=== PATIENT | female | born 1990 | race American Indian/Alaskan Native ===

== ENCOUNTER 2016-11-13 15:11 | Emergency (ER) | payer BC ==
[2016-11-13 16:23] LABS: Basophils % (Auto) 0.4 % (0.0-1.8); Eosinophils % (Auto) 0.1 % (0.0-4.3); Hematocrit 40.9 % (30.3-42.9); Hemoglobin 13.2 gm/dl (10.1-14.3); Mean Corpuscular HGB Conc 32 % (30-34); Mean Corpuscular Hemoglobin 29 pg (28-32); Mean Corpuscular Volume 91 fl (79-97); Platelet Count 319 K/mm3 (140-440); Red Blood Count 4.49 M/mm3 (3.65-5.03); Red Cell Distribution Width 13.7 % (13.2-15.2); White Blood Count 7.3 K/mm3 (4.5-11.0)
[2016-11-13 16:30] LABS: Alanine Aminotransferase 15 units/L (7-56); Albumin 4.7 g/dL (3.9-5); Albumin/Globulin Ratio 1.5 %; Alkaline Phosphatase 59 units/L (35-129); Anion Gap 23 mmol/L; BUN/Creatinine Ratio 3.75; Blood Urea Nitrogen 3 mg/dL (7-17); Calcium 9.9 mg/dL (8.4-10.2); Carbon Dioxide 21 mmol/L (22-30); Chloride 102.1 mmol/L (98-107); Glucose 108 mg/dL (65-100); Sodium 143 mmol/L (137-145); Total Protein 7.9 g/dL (6.3-8.2)
[2016-11-13] MEDS ORDERED: K-DUR PO ONE (16:35)
[2016-11-13] MEDS ORDERED: NACL 0.9% 1000 ML 1,000 ML IV ONE ×2 (16:35)
--- NOTE | 2016-11-13 16:39 | Emergency Department Report ---
HPI - General Chief Complaint: Overdose Time Seen by Provider: 11/13/16 16:17 - HPI HPI: This is a 26-year-old Afro-[place] female presents to the emergency department after she took a tab of ecstasy at about noon or 1:00 this afternoon and since that time she has been feeling very jittery with a rapid heart rate and says she wants to sleep but cannot do so. She is here with her mother who appears to have made her come in for evaluation. The patient herself says that she just "did not eat anything before I took the ecstasy" and that "all I need to do is poop and I'm sure I'll be fine." She denies any past medical history. She denies any headache, vision change, fever, chest pain or shortness of breath. She does not have a primary care doctor. No recent travel or sick contacts at home. ED Past Medical Hx - Past Medical History Previous Medical History?: No - Surgical History Past Surgical History?: No - Social History Smoking Status: Current Every Day Smoker Substance Use Type: Other ED Review of Systems ROS: Stated complaint: POSS OD Other details as noted in HPI Comment: All other systems reviewed and negative Constitutional: denies: chills, fever Eyes: denies: eye pain, eye discharge, vision change ENT: denies: ear pain, throat pain Respiratory: denies: cough, shortness of breath, wheezing Cardiovascular: palpitations. denies: chest pain Gastrointestinal: denies: abdominal pain, nausea, diarrhea Genitourinary: denies: urgency, dysuria, discharge Musculoskeletal: denies: back pain, joint swelling, arthralgia Skin: denies: rash, lesions Neurological: denies: headache, weakness, paresthesias Physical Exam - Physical Exam Vital Signs: Vital Signs 11/13/16 15:40 Temperature 98.8 F Pulse Rate 108 H Respiratory 20 Rate Blood Pressure 148/100 O2 Sat by Pulse 100 Oximetry Physical Exam: GENERAL: The patient is well-developed well-nourished. HEENT: Normocephalic. Atraumatic. Extraocular motions are intact. Patient has moist mucous membranes. Pupils equal reactive to light bilaterally. NECK: Supple. Trachea is midline. CHEST/LUNGS: Clear to auscultation. There is no respiratory distress noted. HEART/CARDIOVASCULAR: Regular. There is no tachycardia. There is no gallop rub or murmur. ABDOMEN: Abdomen is soft, nontender. Patient has normal bowel sounds. There is no abdominal distention. SKIN: Skin is warm and dry. NEURO: The patient is awake, alert, and oriented. The patient is cooperative. The patient has no focal neurologic deficits. The patient has normal speech. Cranial nerves II through XII grossly intact. MUSCULOSKELETAL: There is no tenderness or deformity. There is no limitation range of motion. There is no evidence of acute injury. ED Course Vital Signs 11/13/16 15:40 Temperature 98.8 F Pulse Rate 108 H Respiratory 20 Rate Blood Pressure 148/100 O2 Sat by Pulse 100 Oximetry ED Medical Decision Making - Lab Data Result diagrams: 11/13/16 15:54 11/13/16 15:54 - Medical Decision Making This is a 26-year-old female presents to the emergency department with the inability to rest and a jittery feeling after doing ecstasy around noon or 1:00 this afternoon. The patient was called back to the main emergency department from the waiting room, possibly earlier than she would have otherwise, because her labs came back showing a elevated lactic acid level. The patient got back to the main emergency department she does not appear in any acute distress. The rest of her labs were mostly unremarkable. There was some hyperkalemia that was replaced with potassium chloride. She had about 20 ketones in the urine showing some mild dehydration. Vital signs are stable including being afebrile. The patient was given 2 L of IV fluid resuscitation and after this the lactic acid was rechecked and was back down to a normal range. Patient was reevaluated multiple times for multiple hours and is feeling improved and is in no distress. She appears stable for discharge home. She was encouraged to stay away from any further illicit drugs. She was given referrals for primary care. She will return to the ER with any worsening of her symptoms or any acute distress. - Differential Diagnosis substance abuse, hyperthyroidism, viral syndrome Critical Care Time: No Critical care attestation.: If time is entered above; I have spent that time in minutes in the direct care of this critically ill patient, excluding procedure time. ED Disposition Clinical Impression: Ecstasy abuse, Dehydration, Hypokalemia Disposition: DISCHARGED TO HOME OR SELFCARE Is pt being admited?: No Condition: Stable Instructions: Dehydration (ED), Hypokalemia (ED) Additional Instructions: Please follow-up with a primary care doctor in the next few days. Please try to stay away from any further illicit drug use. Return to the emergency department with any worsening of her symptoms or any acute distress. Referrals: PRIMARY CARE, [Primary Care Provider] - 3-5 Days ERICK CARRENO MD [Staff Physician] - 3-5 Days [facility] [Outside] - 3-5 Days Time of Disposition: 20:13
[2016-11-13 18:41] LABS: Urine Drugs of Abuse Note Disclamer
[2016-11-13 19:16] LABS: Bacteria,Urine 2+ /HPF (Negative); Bilirubin,Urine NEG (Negative); Blood,Urine NEG (Negative); Ketones,Urine 20 mg/dL (Negative); Leukocyte Esterase,Urine TR (Negative); Mucus,Urine 3+ /HPF; Nitrite,Urine POS (Negative)
[2016-11-13 20:52] VITALS: BP 138/74
== END 2016-11-13 20:38 | disposition home or self-care (01) ==
LOC: ED 15:11
DX: E87.6 Hypokalemia (principal); E86.0 Dehydration; F19.10 Other psychoactive substance abuse, uncomplicated; F17.200 Nicotine dependence, unspecified, uncomplicated
CPT/HCPCS: 36415; 80053; 80307; 81001; 81025; 82140; 83735; 84443; 85025; 93005; 93010; 96360; 99285; G0480; J7030; 80320

== ENCOUNTER 2020-09-10 17:09 | Emergency (ER) | payer SELFPAY ==
[2020-09-10 17:23] VITALS: BP 132/95
[2020-09-10] MEDS ORDERED: TETANUS,DIPH,PERTUSS(ACELL) VACCINE 0.5 ML SYRINGE IM ONE (17:34)
--- NOTE | 2020-09-10 17:41 | Emergency Department Report ---
ED Upper Extremity Inj HPI - General Chief Complaint: Extremity Injury, Upper Stated Complaint: RIGHT ARM INJURY Time Seen by Provider: 09/10/20 17:34 Source: patient Mode of arrival: Ambulatory Limitations: No Limitations - History of Present Illness Initial Comments: 30-year-old female states that Friday morning around 5 AM she brushed against the wall and cut her right upper arm with an unknown object. Patient has been treating the wound at home presents to the emergency room for evaluation . She denies fever no pain currently no active bleeding. Her last tetanus is unknown she denies any past medical history she is in no acute distress MD Complaint: Injury to:: right (Lateral humerus) -: Sudden, hour(s) (36 hours ago) Other Injuries: none Place: outdoors Severity scale (0 -10): 0 Worsens With: none Context: laceration Associated Symptoms: denies other symptoms Treatments Prior to Arrival: bandage - Related Data Previous Rx's Medication Instructions Recorded Last Taken Type cephALEXin [Keflex] 500 mg PO Q8HR #21 cap 09/10/20 Unknown Rx Allergies Allergy/AdvReac Type Severity Reaction Status Date / Time Iodinated Contrast Media Allergy Hives Verified 01/14/20 23:36 ED Review of Systems ROS: Stated complaint: RIGHT ARM INJURY Other details as noted in HPI Comment: All other systems reviewed and negative Constitutional: no symptoms reported Respiratory: no symptoms reported Endocrine: no symptoms reported Skin: other (Right upper arm laceration) ED Past Medical Hx - Past Medical History Previous Medical History?: Yes Hx Hypertension: No Hx Heart Attack/AMI: No Hx Congestive Heart Failure: No Hx Diabetes: No Hx Deep Vein Thrombosis: No Hx Pulmonary Embolism: No Hx GERD: No Hx Liver Disease: No Hx Renal Disease: No Hx Sickle Cell Disease: No Hx Arthritis: No Hx Headaches / Migraines: No Hx Seizures: No Hx Kidney Stones: No Hx Asthma: No Hx COPD: No Hx Tuberculosis: No Hx Dementia: No Hx HIV: No Additional medical history: Pancreatitis - Surgical History Past Surgical History?: No Hx Coronary Stent: No Hx Open Heart Surgery: No Hx Pacemaker: No Hx Internal Defibrillator: No Hx Cholecystectomy: No Hx Appendectomy: No Hx Breast Surgery: No - Social History Smoking Status: Current Every Day Smoker Substance Use Type: Alcohol, Marijuana - Medications Home Medications: Home Medications Medication Instructions Recorded Confirmed Last Taken Type cephALEXin [Keflex] 500 mg PO Q8HR #21 cap 09/10/20 Unknown Rx ED Physical Exam - General Limitations: No Limitations General appearance: alert, in no apparent distress - Head Head exam: Present: atraumatic - Eye Eye exam: Present: normal appearance - ENT ENT exam: Present: normal exam - Neck Neck exam: Present: normal inspection - Respiratory Respiratory exam: Present: normal lung sounds bilaterally - Cardiovascular Cardiovascular Exam: Present: regular rate, normal heart sounds - Extremities Exam Extremities exam: Present: full ROM, other (Right deltoid 7 cm gaping wound no active bleeding positive granulation no redness swelling or drainage noted) - Back Exam Back exam: Present: normal inspection - Neurological Exam Neurological exam: Present: alert, oriented X3 - Psychiatric Psychiatric exam: Present: normal affect - Skin Skin exam: Present: warm, dry ED Course Vital Signs 09/10/20 17:17 Temperature 98.1 F Pulse Rate 85 Respiratory 16 Rate Blood Pressure 132/95 O2 Sat by Pulse 100 Oximetry ED Medical Decision Making - Medical Decision Making 30-year-old female presents to the emergency room with a 7 cm wound that occur red from an unknown object 36 hours ago. she is cleansed the wound and left open to air . she has no pain no swelling no tenderness full range of motion of her arm no active bleeding signs of granulation. Wound cleansed with normal saline bacitracin ointment and clean dry dressing applied. Wound care instructions given. Tetanus given w prescribe cephalexin for delayed wound closure. follow- up as needed - Differential Diagnosis Delayed wound closure laceration Critical Care Time: No Critical care attestation.: If time is entered above; I have spent that time in minutes in the direct care of this critically ill patient, excluding procedure time. ED Disposition Clinical Impression: Laceration of right upper arm Qualifiers: Encounter type: initial encounter Qualified Code(s): S41.111A - Laceration without foreign body of right upper arm, initial encounter Disposition: DC-01 TO HOME OR SELFCARE Is pt being admited?: No Does the pt Need Aspirin: No Condition: Stable Instructions: Laceration Care, Adult Additional Instructions: Keep area clean and dry wash with soap and water daily apply clean dry dressing. Follow-up immediately either with your PCP or return to the emergency room if you develop increasing redness swelling pain or inability to move your arm. Take antibiotic(CEPHALEXIN) as prescribed. Take Tylenol or Advil [id number] take as prescribed by package insert for pain. Referrals: GWEN MANRIQUE MD [Staff Physician] - 3-5 Days Time of Disposition: 17:50
[2020-09-10] MEDS ORDERED: NEOMY 3.5 MG/BACIT 400 UNITS/POLY B 5000 UNITS/GM OINT PACKET TP ONE (18:01)
[2020-09-10] MEDS ORDERED: BACITRACIN ZINC OINT 28.4 GM TP SCH (22:00)
== END 2020-09-10 18:19 | disposition home or self-care (01) ==
LOC: ED 17:09
DX: S41.111A Laceration without foreign body of right upper arm, initial encounter (principal); F12.90 Cannabis use, unspecified, uncomplicated; F17.200 Nicotine dependence, unspecified, uncomplicated; Z91.041 Radiographic dye allergy status; Z79.899 Other long term (current) drug therapy; X58.XXXA Exposure to other specified factors, initial encounter; Y93.89 Activity, other specified; Y92.099 Unspecified place in other non-institutional residence as the place of occurrence of the external cause; Y99.8 Other external cause status
CPT/HCPCS: 90471; 90715; 99282; A6250